=== PATIENT | female | born 1990 | race Caucasian/White ===

== ENCOUNTER 2017-06-16 11:37 | Emergency (ER) | payer OTHER ==
[~2017-06-16] VITALS: Ht 162.6 cm; Wt 92.0 kg
[~2017-06-16 11:37] MED LIST: COLACE100 MG PO; ENDOCET 5-3251 EACH PO; FEOSOL325 MG PO; IBUPROFEN800 MG PO; MOTION SICKNESS25 M4 PO; MOTRIN IB200 MG PO; MULTI-DAY VITA1 EACH PO; PNV-OB WITH DH1 EACH PO; SEASONIQUE 01 TABLET PO; TYLENOL REGULA325 MG PO; ZOFRAN4 MG PO
[2017-06-16] MEDS ORDERED: TYLENOL WITH C1 EACH PO (17:13)
[2017-06-16] MEDS ORDERED: VERTICALM25 MG PO (17:14)
[2017-06-16 17:32] VITALS: BP 123/67
== END 2017-06-16 17:33 | disposition home or self-care (01) ==
LOC: EME 11:37
DX: R51 Headache (principal); R42 Dizziness and giddiness; R11.0 Nausea
CPT/HCPCS: 70450; 99281; 99283; J1885; J2765

== ENCOUNTER 2018-05-23 09:22 | Outpatient (CLI) | payer OTHER ==
[~2018-05-23 09:22] MED LIST changes: +TYLENOL WITH C1 EACH PO; +VERTICALM25 MG PO
[2018-05-23 09:49] VITALS: BP 130/71
[2018-05-23 11:06] VITALS: BP 128/69
[2018-05-23 12:56] VITALS: BP 141/74
[2018-05-23 14:34] VITALS: BP 116/62
[2018-05-23 15:03] LABS: HEMATOCRIT 33.8 % (36.0-46.0); HEMOGLOBIN 11.7 G/DL (11.9-15.5); MCH 29.8 PG (29.0-34.0); MCHC 34.6 G/DL (30.0-36.0); MCV 86.2 FL (83-99); PLATELET COUNT 151 K/uL (156-360); RBC DIS.WIDTH-CV 15.3 % (11.8-14.6); RBC DIS.WIDTH-SD 47.9 % (39-53); RED BLOOD COUNT 3.92 M/uL (3.80-5.20); WHITE BLOOD COUNT 13.9 K/uL (4.1-10.2)
[2018-05-23 15:12] LABS: ALBUMIN 3.1 g/dL (3.2-4.8); CHLORIDE 105 mEq/L (99-109); POTASSIUM 4.1 mEq/L (3.7-5.4); SODIUM 138 mEq/L (136-147)
[2018-05-23 15:15] LABS: GLUCOSE 101 mg/dL (70-99); TOTAL PROTEIN 5.7 g/dL (6.4-8.3)
[2018-05-23 15:17] LABS: TOTAL BILIRUBIN 0.9 mg/dL (0.0-1.0)
[2018-05-23 15:18] LABS: ALKALINE PHOSPHATASE 115 IU/L (3-129); CREATININE 0.6 mg/dL (0.6-1.3); GFR ESTIMATE (CALCULATED) > 59 mL/min/
[2018-05-23 15:19] LABS: UREA NITROGEN (BUN) 3 mg/dL (9-23)
[2018-05-23 15:20] LABS: AST (GOT) 13 IU/L (2-34)
[2018-05-23 15:21] LABS: ALT (GPT) 9 IU/L (3-49)
[2018-05-23 15:22] VITALS: BP 114/71
[2018-05-23] MEDS ORDERED: PROCARDIA20 MG PO (16:12)
== END 2018-05-23 16:40 | disposition home or self-care (01) ==
LOC: LDRP-OP 09:22 → 2WEST 09:23
PROVIDERS: Obstetrics & Gynecology Obstetrics
DX: O60.03 Preterm labor without delivery, third trimester (principal); Z3A.36 36 weeks gestation of pregnancy; O34.219 Maternal care for unspecified type scar from previous cesarean delivery; O36.63X0 Maternal care for excessive fetal growth, third trimester, not applicable or unspecified; R73.9 Hyperglycemia, unspecified
CPT/HCPCS: 59025; 80053; 82570; 84156; 85027; G0378; J0702; J7120

== ENCOUNTER 2018-05-24 12:21 | Outpatient (CLI) | payer OTHER ==
[~2018-05-24] VITALS: Ht 162.6 cm; Wt 104.7 kg
[~2018-05-24 12:21] MED LIST changes: +PROCARDIA20 MG PO
[2018-05-24 12:43] VITALS: BP 124/79
[2018-05-29] MEDS ORDERED: ONE A DAY PREN1 EACH PO (11:41)
== END 2018-05-24 13:56 | disposition home or self-care (01) ==
LOC: LDRP-OP 12:21 → 2WEST 12:22 → LDRP-OP 07-16 16:52
DX: O47.03 False labor before 37 completed weeks of gestation, third trimester (principal); Z3A.36 36 weeks gestation of pregnancy
CPT/HCPCS: 59025; G0378; J0702

== ENCOUNTER 2018-05-25 17:33 | Outpatient (CLI) | payer OTHER ==
[~2018-05-25] VITALS: Ht 162.6 cm; Wt 104.0 kg
[~2018-05-25 17:33] MED LIST changes: +ROCEPHIN 2 GM VI2 GM IV
[2018-05-25 18:09] LABS: BASOPHIL (%) 0.2 % (0-1); EOSINOPHIL (%) 0 % (0-5); HEMATOCRIT 31.7 % (36.0-46.0); HEMOGLOBIN 10.6 G/DL (11.9-15.5); LYMPHOCYTE (%) 5.1 % (15-42); LYMPHOCYTE COUNT 0.9 K/uL (1.0-2.8); MCH 28.8 PG (29.0-34.0); MCHC 33.4 G/DL (30.0-36.0); MCV 86.1 FL (83-99); MONOCYTE (%) 10.6 % (3-12); MONOCYTE COUNT 1.8 K/uL (0-0.8); NEUTROPHIL (%) 83.1 % (45-76); NEUTROPHIL COUNT 14.3 K/uL (1.8-6.4); NRBC (%) 0.1 /100 WBC (0-0); PLATELET COUNT 172 K/uL (156-360); RBC DIS.WIDTH-CV 15.4 % (11.8-14.6); RBC DIS.WIDTH-SD 48.3 % (39-53); RED BLOOD COUNT 3.68 M/uL (3.80-5.20); WHITE BLOOD COUNT 17.2 K/uL (4.1-10.2)
[2018-05-25 18:35] LABS: ALBUMIN 2.8 G/DL (3.2-4.8); ALKALINE PHOSPHATASE 85 IU/L (3-129); ALT (GPT) 7 IU/L (3-49); AST (GOT) 10 IU/L (2-34); CHLORIDE 103 MEQ/L (99-109); CREATININE 0.5 MG/DL (0.6-1.3); GFR ESTIMATE (CALCULATED) > 59 mL/min/; POTASSIUM 3.3 MEQ/L (3.7-5.4); SODIUM 134 MEQ/L (136-147); TOTAL BILIRUBIN 0.5 MG/DL (0.0-1.0); TOTAL PROTEIN 5.7 G/DL (6.4-8.3); UREA NITROGEN (BUN) 4 mg/dL (9-23)
[2018-05-25 18:36] LABS: GLUCOSE 191 mg/dL (70-99)
[2018-05-25 18:45] LABS: APPEARANCE TURBID ((CLEAR)); BILIRUBIN NEGATIVE; BLOOD MODERATE; COLOR AMBER ((YELLOW)); GLUCOSE (STRIP) 50; KETONES NEGATIVE; LEUKOCYTES LARGE; NITRITE NEGATIVE; PROTEIN (STRIP) 30; SPECIFIC GRAVITY 1.017 (1.000-1.030); UROBILINOGEN 0.2 MG/DL (0.2-1.0)
[2018-05-25 19:20] VITALS: BP 108/58
[2018-05-25 19:33] LABS: BACTERIA 3+ /HPF; EPITHELIAL CELLS 3+ /HPF; UCUL ADDED? YES; WHITE BLOOD CELLS TNTC /HPF (0-5)
[2018-05-25 22:33] VITALS: BP 113/59
[2018-05-26 02:35] VITALS: BP 123/69
[2018-05-26 19:20] VITALS: BP 116/57
[2018-05-27] VITALS (7 sets, daily range): BP systolic 97–134; BP diastolic 51–81
[2018-05-27 06:21] LABS: BASOPHIL (%) 0.2 % (0-1); EOSINOPHIL (%) 0.1 % (0-5); HEMATOCRIT 29.5 % (36.0-46.0); HEMOGLOBIN 9.8 G/DL (11.9-15.5); IMMATURE GRANULOCYTE (%) 1.6 % (0.0-0.7); LYMPHOCYTE (%) 9.6 % (15-42); MCHC 33.2 G/DL (30.0-36.0); MCV 87.3 FL (83-99); MONOCYTE (%) 10.8 % (3-12); MONOCYTE COUNT 1.1 K/uL (0-0.8); NEUTROPHIL (%) 77.7 % (45-76); NEUTROPHIL COUNT 8.1 K/uL (1.8-6.4); NRBC (%) 0.2 /100 WBC (0-0); PLATELET COUNT 133 K/uL (156-360); RBC DIS.WIDTH-CV 15.7 % (11.8-14.6); RBC DIS.WIDTH-SD 49.5 % (39-53); RED BLOOD COUNT 3.38 M/uL (3.80-5.20); WHITE BLOOD COUNT 10.4 K/uL (4.1-10.2)
[2018-05-28 03:01] VITALS: BP 117/71
[2018-05-28 07:21] LABS: HEMATOCRIT 30.4 % (36.0-46.0); HEMOGLOBIN 10.3 G/DL (11.9-15.5); MCH 29.2 PG (29.0-34.0); MCHC 33.9 G/DL (30.0-36.0); MCV 86.1 FL (83-99); PLATELET COUNT 156 K/uL (156-360); RBC DIS.WIDTH-CV 15.4 % (11.8-14.6); RBC DIS.WIDTH-SD 48.6 % (39-53); RED BLOOD COUNT 3.53 M/uL (3.80-5.20); WHITE BLOOD COUNT 10.2 K/uL (4.1-10.2)
[2018-05-28 07:50] LABS: ALBUMIN 2.1 G/DL (3.2-4.8); ALKALINE PHOSPHATASE 87 IU/L (3-129); ALT (GPT) 10 IU/L (3-49); AST (GOT) 14 IU/L (2-34); CHLORIDE 106 MEQ/L (99-109); CREATININE 0.4 MG/DL (0.6-1.3); GFR ESTIMATE (CALCULATED) > 59 mL/min/; GLUCOSE 92 mg/dL (70-99); POTASSIUM 3.8 MEQ/L (3.7-5.4); SODIUM 140 MEQ/L (136-147); UREA NITROGEN (BUN) 3 mg/dL (9-23)
[2018-05-28 07:51] LABS: ANISOCYTOSIS 1+; BASOPHIL (%) 0.3 % (0-1); EOSINOPHIL (%) 0.1 % (0-5); LYMPHOCYTE (%) 14.7 % (15-42); LYMPHOCYTE COUNT 1.5 K/uL (1.0-2.8); MICROCYTOSIS 1+; MONOCYTE (%) 8.9 % (3-12); MONOCYTE COUNT 0.9 K/uL (0-0.8); NEUTROPHIL COUNT 7.6 K/uL (1.8-6.4); TOTAL BILIRUBIN 0.3 MG/DL (0.0-1.0); TOTAL PROTEIN 4.3 G/DL (6.4-8.3)
[2018-05-28 08:38] VITALS: BP 101/59
[2018-05-29] MEDS ORDERED: ONE A DAY PREN1 EACH PO (11:41)
== END 2018-05-28 09:59 | disposition home or self-care (01) ==
LOC: LDRP-OP 17:33 → 2WEST 17:34 → LDRP-OP 07-16 14:00
PROVIDERS: Nurse Practitioner; Obstetrics & Gynecology; Obstetrics & Gynecology Gynecology
DX: O23.03 Infections of kidney in pregnancy, third trimester (principal); N12 Tubulo-interstitial nephritis, not specified as acute or chronic; B96.1 Klebsiella pneumoniae [K. pneumoniae] as the cause of diseases classified elsewhere; O34.219 Maternal care for unspecified type scar from previous cesarean delivery; O40.3XX0 Polyhydramnios, third trimester, not applicable or unspecified; Z3A.37 37 weeks gestation of pregnancy
CPT/HCPCS: 59025; 76818; 80053; 81003; 85025; 87040; 87077; 87081; 87086; 87186; 87801; G0378; J0696; J7120

== ENCOUNTER 2018-06-01 12:11 | Outpatient (CLI) | payer OTHER ==
[2018-06-01] VITALS (12 sets, daily range): BP systolic 117–161; BP diastolic 64–94
[~2018-06-01 12:11] MED LIST changes: +ONE A DAY PREN1 EACH PO
[2018-06-01 15:08] LABS: BASOPHIL (%) 0.2 % (0-1); EOSINOPHIL (%) 0.1 % (0-5); HEMATOCRIT 30.1 % (36.0-46.0); HEMOGLOBIN 10.3 G/DL (11.9-15.5); IMMATURE GRANULOCYTE (%) 2.2 % (0.0-0.7); LYMPHOCYTE (%) 17.2 % (15-42); LYMPHOCYTE COUNT 1.6 K/uL (1.0-2.8); MCH 28.9 PG (29.0-34.0); MCHC 34.2 G/DL (30.0-36.0); MCV 84.3 FL (83-99); MONOCYTE (%) 4.2 % (3-12); MONOCYTE COUNT 0.4 K/uL (0-0.8); NEUTROPHIL (%) 76.1 % (45-76); NEUTROPHIL COUNT 7.1 K/uL (1.8-6.4); NRBC (%) 0.2 /100 WBC (0-0); PLATELET COUNT 194 K/uL (156-360); RBC DIS.WIDTH-CV 14.6 % (11.8-14.6); RBC DIS.WIDTH-SD 44.6 % (39-53); RED BLOOD COUNT 3.57 M/uL (3.80-5.20); WHITE BLOOD COUNT 9.3 K/uL (4.1-10.2)
[2018-06-01 15:16] LABS: ALBUMIN 2.4 g/dL (3.2-4.8); CHLORIDE 106 mEq/L (99-109); POTASSIUM 3.8 mEq/L (3.7-5.4); SODIUM 139 mEq/L (136-147)
[2018-06-01 15:18] LABS: GLUCOSE 72 mg/dL (70-99)
[2018-06-01 15:19] LABS: TOTAL PROTEIN 5.4 g/dL (6.4-8.3)
[2018-06-01 15:20] LABS: TOTAL BILIRUBIN 0.3 mg/dL (0.0-1.0)
[2018-06-01 15:22] LABS: ALKALINE PHOSPHATASE 97 IU/L (3-129); CREATININE 0.6 mg/dL (0.6-1.3); GFR ESTIMATE (CALCULATED) > 59 mL/min/
[2018-06-01 15:23] LABS: UREA NITROGEN (BUN) 4 mg/dL (9-23)
[2018-06-01 15:24] LABS: AST (GOT) 18 IU/L (2-34)
[2018-06-01 15:25] LABS: ALT (GPT) 13 IU/L (3-49)
== END 2018-06-01 17:30 | disposition home or self-care (01) ==
LOC: LDRP-OP 12:11 → 2WEST 12:12 → LDRP-OP 07-16 10:09
PROVIDERS: Obstetrics & Gynecology
DX: O26.893 Other specified pregnancy related conditions, third trimester (principal); R03.0 Elevated blood-pressure reading, without diagnosis of hypertension; R51 Headache; O23.03 Infections of kidney in pregnancy, third trimester; O99.213 Obesity complicating pregnancy, third trimester; O34.219 Maternal care for unspecified type scar from previous cesarean delivery; Z3A.37 37 weeks gestation of pregnancy
CPT/HCPCS: 59025; 80053; 82570; 84156; 85025; G0378

== ENCOUNTER 2018-06-03 10:15 | Inpatient (IN) | payer OTHER ==
[2018-06-03] VITALS (9 sets, daily range): BP systolic 126–175; BP diastolic 75–96
[~2018-06-03] VITALS: Ht 162.6 cm; Wt 109.8 kg
[2018-06-03 11:08] LABS: BASOPHIL (%) 0.2 % (0-1); EOSINOPHIL (%) 0.2 % (0-5); HEMOGLOBIN 10.6 G/DL (11.9-15.5); IMMATURE GRANULOCYTE (%) 1.4 % (0.0-0.7); LYMPHOCYTE (%) 18.3 % (15-42); LYMPHOCYTE COUNT 1.9 K/uL (1.0-2.8); MCH 29.2 PG (29.0-34.0); MCHC 34.2 G/DL (30.0-36.0); MCV 85.4 FL (83-99); MONOCYTE (%) 4.2 % (3-12); MONOCYTE COUNT 0.4 K/uL (0-0.8); NEUTROPHIL (%) 75.7 % (45-76); NEUTROPHIL COUNT 7.9 K/uL (1.8-6.4); PLATELET COUNT 217 K/uL (156-360); RBC DIS.WIDTH-CV 14.7 % (11.8-14.6); RBC DIS.WIDTH-SD 45.8 % (39-53); RED BLOOD COUNT 3.63 M/uL (3.80-5.20); WHITE BLOOD COUNT 10.4 K/uL (4.1-10.2)
[2018-06-03 11:17] LABS: ALBUMIN 2.6 g/dL (3.2-4.8); CHLORIDE 109 mEq/L (99-109); POTASSIUM 3.9 mEq/L (3.7-5.4); SODIUM 139 mEq/L (136-147)
[2018-06-03 11:19] LABS: GLUCOSE 82 mg/dL (70-99)
[2018-06-03 11:20] LABS: TOTAL PROTEIN 5.2 g/dL (6.4-8.3)
[2018-06-03 11:21] LABS: TOTAL BILIRUBIN 0.4 mg/dL (0.0-1.0)
[2018-06-03 11:23] LABS: ALKALINE PHOSPHATASE 100 IU/L (3-129); CREATININE 0.6 mg/dL (0.6-1.3); GFR ESTIMATE (CALCULATED) > 59 mL/min/
[2018-06-03 11:24] LABS: UREA NITROGEN (BUN) 4 mg/dL (9-23)
[2018-06-03 11:25] LABS: AST (GOT) 19 IU/L (2-34)
[2018-06-03 11:26] LABS: ALT (GPT) 15 IU/L (3-49)
[2018-06-03 11:31] LABS: AMPHETAMINE NEGATIVE (500 ng/mL); BARBITURATES NEGATIVE (200 ng/mL); BENZODIAZEPINES NEGATIVE (150 ng/mL); BUPRENORPHINE NEGATIVE (10 ng/mL); COCAINE NEGATIVE (150 ng/mL); METHADONE NEGATIVE (200 ng/mL); METHAMPHETAMINE NEGATIVE (500 ng/mL); OPIATES (MORPHINE) NEGATIVE (100 ng/mL); OXYCODONE NEGATIVE (100 ng/mL); PHENCYCLIDINE NEGATIVE (25 ng/mL); PROPOXYPHENE NEGATIVE (300 ng/mL); THC CANNABINOIDS NEGATIVE (50 ng/mL); TRICYCLIC ANTIDEPRESSANTS NEGATIVE (300 ng/mL)
[2018-06-03] MEDS ORDERED: MOTRIN800 MG PO (16:41)
[2018-06-03] MEDS ORDERED: PERCOCET 5/31 TABLET PO (16:41)
[2018-06-04] VITALS (7 sets, daily range): BP systolic 117–147; BP diastolic 65–81
[2018-06-04 06:41] LABS: BASOPHIL (%) 0.2 % (0-1); EOSINOPHIL (%) 0.1 % (0-5); HEMATOCRIT 26.9 % (36.0-46.0); HEMOGLOBIN 8.9 G/DL (11.9-15.5); IMMATURE GRANULOCYTE (%) 0.8 % (0.0-0.7); LYMPHOCYTE (%) 14.1 % (15-42); LYMPHOCYTE COUNT 1.7 K/uL (1.0-2.8); MCH 29.2 PG (29.0-34.0); MCHC 33.1 G/DL (30.0-36.0); MCV 88.2 FL (83-99); MONOCYTE (%) 4.9 % (3-12); MONOCYTE COUNT 0.6 K/uL (0-0.8); NEUTROPHIL (%) 79.9 % (45-76); NEUTROPHIL COUNT 9.5 K/uL (1.8-6.4); PLATELET COUNT 219 K/uL (156-360); RBC DIS.WIDTH-SD 47.4 % (39-53); RED BLOOD COUNT 3.05 M/uL (3.80-5.20); WHITE BLOOD COUNT 11.8 K/uL (4.1-10.2)
[2018-06-05 07:31] VITALS: BP 164/96
[2018-06-05 08:47] VITALS: BP 151/90
[2018-06-05 15:04] VITALS: BP 144/95
[2018-06-05 19:12] VITALS: BP 140/72
[2018-06-05 23:13] VITALS: BP 135/90
[2018-06-06 03:23] VITALS: BP 151/80
[2018-06-06 03:39] VITALS: BP 144/70
[2018-06-06] MEDS ORDERED: LABETALOL HCL200 MG PO (13:17)
== END 2018-06-06 13:35 | disposition home or self-care (01) | DRG 765 ==
LOC: LDRP-OP 10:15 → 2WEST 10:16 → LDRP-OP 07-16 17:34
PROVIDERS: Obstetrics & Gynecology
PROC: 10D00Z1 Extraction of Products of Conception, Low, Open Approach (ICD-10-PCS; principal; 2018-06-03)
DX: O34.211 Maternal care for low transverse scar from previous cesarean delivery (principal); O13.4 Gestational [pregnancy-induced] hypertension without significant proteinuria, complicating childbirth; O75.3 Other infection during labor; N12 Tubulo-interstitial nephritis, not specified as acute or chronic; R78.81 Bacteremia; O99.214 Obesity complicating childbirth; E66.9 Obesity, unspecified; Z68.37 Body mass index [BMI] 37.0-37.9, adult; Z3A.38 38 weeks gestation of pregnancy; Z37.0 Single live birth
CPT/HCPCS: 80053; 85025; 86850; 86900; 86901; 87070; 87075; 87205; J0690; J0696; J1100; J1200; J1885; J2274; J2405; J3010; J7120